=== PATIENT | female | born 1980 | race Two or more races ===

== ENCOUNTER 2024-04-26 04:51 | Inpatient (IN) | payer MEDICAID, OTHER ==
[~2024-04-26] VITALS: Ht 170.2 cm; Wt 79.8 kg
[2024-04-26] MEDS ORDERED: LIDOCAINE 2%HCL (LOCAL ANESTH.) INJ 20ML MDV IJ PRN (05:15)
[2024-04-26] MEDS ORDERED: BUTORPHANOL TARTRATE 2 MG/1 ML VIAL IV PRN ×2 (05:15)
[2024-04-26 05:59] LABS: Urine Bacteria None Seen /hpf (None Seen)
[2024-04-26 06:07] LABS: Basophils # (auto) 0 10 ^3/uL (0-0.2); Basophils % (auto) 0.8 % (0.0-2.0); Eosinophils # (auto) 0.1 10 ^3/uL (0-0.8); Eosinophils % (auto) 2.2 % (0.0-7.0); Hematocrit 32.1 % (36.0-46.0); Hemoglobin 10.9 g/dL (12.2-16.2); Lymphocytes # (auto) 1.4 10 ^3/uL (0.4-5.4); Lymphocytes % (auto) 29.5 % (10.0-50.0); Mean Corpuscular Hemoglobin 27.7 pg (28.0-32.0); Mean Corpuscular Hgb Conc. 33.9 g/dL (32.0-36.0); Mean Corpuscular Volume 81.9 fL (80.0-100.0); Monocytes # (auto) 0.5 10 ^3/uL (0-1.3); Monocytes % (auto) 9.4 % (0.0-12.0); Neutrophils # (auto) 2.8 10 ^3/uL (1.6-8.6); Neutrophils % (auto) 58.1 % (37.0-80.0); Nucleated Red Blood Cells % 0.2 %; Platelet Count (auto) 172 10^3/uL (140-450); Red Blood Cells 3.92 10^6/uL (4.0-5.20); Red Cell Distribution Width 15.1 % (11.8-14.3); White Blood Cell 4.9 10^3/uL (4.4-10.8)
[2024-04-26 06:12] LABS: Urine Blood Negative /uL (Negative); Urine Clarity Clear (Clear); Urine Color Light-Yellow (Yellow); Urine Mucus FEW (None Seen); Urine Protein, UAD Negative (Negative); Urine Specific Gravity 1.013 (1.001-1.035); Urine Urobilinogen Normal (Negative); Urine WBC 1 /hpf (0 - 5)
[2024-04-26 06:23] LABS: Amphetamine Screen, Urine Neg (NEGATIVE); Barbiturate Scree,Urine Neg (NEGATIVE); Benzodiazephine Screen, Urine Neg (NEGATIVE)
[2024-04-26 06:24] LABS: Cocaine Screen, Urine Neg (NEGATIVE)
[2024-04-26 06:25] LABS: Cannabinoid Screen, Urine Neg (NEGATIVE); Opiate Scree,Urine Neg (NEGATIVE); Phencyclidine Screen, Urine Neg (NEGATIVE)
[2024-04-26 06:26] LABS: INR 0.93 (0.9-1.15); Partial Thromboplastin Time 24.8 SEC (24.5-34.5); Prothrombin Time 9.9 sec (9.3-11.8)
[2024-04-26 06:27] LABS: Alanine Aminotransferase 12 U/L (7-40); Albumin 3.4 g/dL (3.2-4.8); Alkaline Phosphatase 101 U/L (46-116); Anion Gap 10 (5-15); Aspartate Aminotransferase 16 U/L (13-40); BUN/Creatinine Ratio 14.8 (10.0-20.0); Bilirubin, Total 0.4 mg/dL (0.2-1.0); Blood Urea Nitrogen 8 mg/dL (9-23); Calcium 8.6 mg/dL (8.7-10.4); Carbon Dioxide 20 mmol/L (20-30); Chloride 110 mmol/L (98-107); Glucose 76 mg/dL (74-106); Potassium 3.9 mmol/L (3.5-5.1); Sodium 140 mmol/L (136-145); Total Protein 5.5 g/dL (5.7-8.2)
[2024-04-26] MEDS: miSOPROStol 50 MCG per PRE-CUT 1/2 TAB PO PRN (08:00)
[2024-04-26] MEDS: LACTATED RINGER'S 1,000 ML IV SCH (09:52)
[2024-04-26] MEDS: PHISODERM TOP SOLN 240ML BTL TOP PRN (18:35)
[2024-04-26] MEDS: DERMOPLAST 60ML BOTTLE TOP PRN (18:35)
[2024-04-26] MEDS: WITCH HAZEL-GLYCERIN PAD TOP PRN (18:35)
[2024-04-26] MEDS ORDERED: ONDANSETRON HCL 4 MG/2 ML VIAL IV PRN (21:00)
[2024-04-26] MEDS ORDERED: DIPHENOXYLATE W/ATROPINE 2.5 MG TAB PO PRN (21:00)
[2024-04-26] MEDS ORDERED: CARBOPROST TROMETHAMINE 250 MCG/1ML VIAL IM PRN (21:00)
[2024-04-26] MEDS ORDERED: METHYLERGONOVINE MALEATE 0.2 MG/ML AMP IM PRN (21:00)
[2024-04-27] MEDS ORDERED: TERBUTALINE SULFATE 1 MG/ML 1ML VIAL SC PRN (03:00)
[2024-04-27] MEDS: LACT. RINGERS/OXYTOCIN 20UNITS 1,000 ML IV SCH (03:24)
[2024-04-27] MEDS: LACT. RINGERS/OXYTOCIN 20UNITS 500 ML IV ONE ×2 (07:42→07:43)
[2024-04-27] MEDS ORDERED: IBUPROFEN 600 MG TAB PO PRN (07:45)
[2024-04-27] MEDS ORDERED: ACETAMINOPHEN 325 MG TAB PO PRN (07:45)
[2024-04-27 09:36] LABS: Basophils # (auto) 0 10 ^3/uL (0-0.2); Basophils % (auto) 0.4 % (0.0-2.0); Eosinophils # (auto) 0.1 10 ^3/uL (0-0.8); Eosinophils % (auto) 1.4 % (0.0-7.0); Hematocrit 37.1 % (36.0-46.0); Hemoglobin 12.4 g/dL (12.2-16.2); Lymphocytes # (auto) 1.3 10 ^3/uL (0.4-5.4); Lymphocytes % (auto) 23.9 % (10.0-50.0); Mean Corpuscular Hemoglobin 27.4 pg (28.0-32.0); Mean Corpuscular Hgb Conc. 33.3 g/dL (32.0-36.0); Mean Corpuscular Volume 82.2 fL (80.0-100.0); Monocytes # (auto) 0.4 10 ^3/uL (0-1.3); Monocytes % (auto) 6.6 % (0.0-12.0); Neutrophils # (auto) 3.7 10 ^3/uL (1.6-8.6); Neutrophils % (auto) 67.7 % (37.0-80.0); Nucleated Red Blood Cells % 0.2 %; Platelet Count (auto) 179 10^3/uL (140-450); Red Blood Cells 4.51 10^6/uL (4.0-5.20); Red Cell Distribution Width 15.2 % (11.8-14.3); White Blood Cell 5.4 10^3/uL (4.4-10.8)
[2024-04-27 10:18] LABS: Alanine Aminotransferase 12 U/L (7-40); Albumin 3.6 g/dL (3.2-4.8); Alkaline Phosphatase 112 U/L (46-116); Anion Gap 9 (5-15); Aspartate Aminotransferase 22 U/L (13-40); BUN/Creatinine Ratio 12.1 (10.0-20.0); Bilirubin, Total 0.4 mg/dL (0.2-1.0); Blood Urea Nitrogen 7 mg/dL (9-23); Calcium 9.2 mg/dL (8.7-10.4); Carbon Dioxide 23 mmol/L (20-30); Chloride 107 mmol/L (98-107); Glucose 78 mg/dL (74-106); Magnesium 1.7 mg/dL (1.6-2.6); Potassium 3.9 mmol/L (3.5-5.1); Sodium 139 mmol/L (136-145)
[2024-04-27 10:19] LABS: Total Protein 5.9 g/dL (5.7-8.2)
[2024-04-27 11:07] VITALS: BP 129/71; PULSE 39; RESP 18; TEMP 98.3; O2SAT 98
[2024-04-27 12:23] LABS: Free T3 2.43 pg/mL (2.3-4.2); Free T4 (Free Thyroxine) 0.97 ng/dL (0.89-1.76)
[2024-04-27 15:16] VITALS: BP 103/66; PULSE 47; RESP 18; TEMP 97.5; O2SAT 98
[2024-04-27 19:00] VITALS: BP 114/61; PULSE 48; RESP 16; TEMP 97.8; O2SAT 97
[2024-04-27 23:00] VITALS: BP 134/71; PULSE 52; RESP 16; TEMP 98.7; O2SAT 97
[2024-04-28 03:00] VITALS: BP 115/61; PULSE 50; RESP 16; TEMP 98.4; O2SAT 95
[2024-04-28 05:08] LABS: RPR Non Reactive (Non Reactive)
[2024-04-28 07:05] VITALS: BP 110/67; PULSE 47; RESP 18; TEMP 98.6; O2SAT 97
[2024-04-28 08:06] LABS: Rubella Antibodies, IgG <0.90 index (Immune >0.99)
[2024-04-28 11:00] VITALS: BP 111/66; PULSE 66; RESP 16; TEMP 97.7; O2SAT 97
[2024-04-28] MEDS ORDERED: PREN-96 PO (12:58)
[2024-04-28] MEDS ORDERED: IBU600T PO (12:58)
[2024-04-28 15:00] VITALS: BP 139/76; PULSE 46; RESP 16; TEMP 97.6; O2SAT 98
[2024-04-28 16:45] VITALS: TEMP 36.4
== END 2024-04-28 17:45 | disposition home or self-care (01) | DRG 560 ==
LOC: LDRP 04:51
PROVIDERS: ADMIT Obstetrics & Gynecology; ATTEND Obstetrics & Gynecology
PROC: 10E0XZZ Delivery of Products of Conception, External Approach (ICD-10-PCS; principal; 2024-04-27)
PROC: 3E0DXGC Introduction of Other Therapeutic Substance into Mouth and Pharynx, External Approach (ICD-10-PCS; 2024-04-27)
DX: O80 Encounter for full-term uncomplicated delivery (principal); Z37.0 Single live birth; Z3A.39 39 weeks gestation of pregnancy
CPT/HCPCS: 36415; 59025; 59409; 80053; 80307; 81001; 83735; 83880; 84439; 84443; 84481; 84484; 85025; 85610; 85730; 86592; 86762; 86803; 86850; 86900; 86901; 93306; 94760; 96360; 96361; 96365; G0378; J2590